=== PATIENT | female | born 1945 | race Caucasian/White ===

== ENCOUNTER 2018-03-07 06:50 | Day surgery (SDC) | payer MEDICARE, OTHER ==
[~2018-03-07] VITALS: Ht 175.3 cm; Wt 101.8 kg
[2018-03-07] MEDS ORDERED: PARO10TA2 PO (07:43)
[2018-03-07] MEDS ORDERED: SOTA120T PO (07:43)
[2018-03-07] MEDS ORDERED: SPIR25TA PO (07:43)
[2018-03-07] MEDS ORDERED: APIX5TAB PO (07:45)
[2018-03-07] MEDS ORDERED: FURO40TA PO (07:45)
[2018-03-07] MEDS ORDERED: D-20TAB3 PO (07:45)
[2018-03-07] MEDS ORDERED: PRAV40TA2 PO (07:45)
[2018-03-07] MEDS ORDERED: SODIUM CHLOR 0.9% 1000 ML INJ 1,000 ML IV SCH (08:00)
[2018-03-07 08:04] VITALS: BP 140/86; PULSE 82; RESP 18; TEMP 98; O2SAT 93
[2018-03-07 08:07] LABS: AUTOMATED NEUTROPHIL # 7.2 TH/MM3 (1.8-7.7); BASOPHIL # 0.1 TH/MM3 (0-0.2); BASOPHIL % 0.9 % (0.0-2.0); EOSINOPHIL # 0.1 TH/MM3 (0-0.4); EOSINOPHIL % 1.4 % (0.0-4.0); HEMATOCRIT 40.9 % (35.0-46.0); HEMOGLOBIN 13.8 GM/DL (11.6-15.3); LYMPH % 11.9 % (9.0-44.0); LYMPHOCYTE # 1.1 TH/MM3 (1.0-4.8); MEAN CELL VOLUME 88.8 FL (80.0-100.0); MEAN CORPUSCULAR HEMOGLOBIN 29.9 PG (27.0-34.0); MEAN CORPUSCULAR HGB CONC 33.7 % (32.0-36.0); MONOCYTE # 0.5 TH/MM3 (0-0.9); NEUT % 79.8 % (16.0-70.0); PLATELET COUNT 230 TH/MM3 (150-450); RED CELL DISTRIBUTION WIDTH 13.7 % (11.6-17.2)
[2018-03-07 08:16] LABS: INTERNATIONAL NORMALIZED RATIO 0.9 RATIO; PROTHROMBIN TIME - PATIENT 9.3 SEC (9.8-11.6)
[2018-03-07 08:25] LABS: BICARBONATE 28.2 MEQ/L (21.0-32.0); CALCIUM 9.4 MG/DL (8.5-10.1); CREATININE 1.11 MG/DL (0.50-1.00)
--- NOTE | 2018-03-07 09:27 | PD.RAD ---
Post Procedure Progress Note Procedure Date: Mar 07, 2018 Supervising Radiologist: Louis Parekh Proceduralist/Assist: Alyssa Lange, RT(R), Mike Frazier, RT(R) Anesthesia: Local Plan of Activity Patient to Unit: ROPU Patient Condition: Good See PACS Report for procedural detail/treatment Louis Parekh MD Mar 07, 2018 09:27
[2018-03-07 09:30] VITALS: BP 106/48; PULSE 80; RESP 18; TEMP 98.4; O2SAT 95
[2018-03-07 09:45] VITALS: BP 106/48; PULSE 80; RESP 18; TEMP 98.4; O2SAT 95
[2018-03-07 10:04] LABS: TOTAL PROTEIN,CSF 43.4 MG/DL (15.0-45.0)
--- NOTE | 2018-03-07 10:10 | RADRPT ---
EXAM DATE/TIME: 03/07/2018 09:21 [place] COMPARISON: No previous studies available for comparison. INDICATIONS : Patient presents with peripheral nerve disease in need of lumbar puncture. MEDICAL HISTORY : Anxiety Arthritis Fibromyalgia CA Depression SURGICAL HISTORY : Heart cath Cardioversion Hysterectomy ENCOUNTER: Initial ACUITY: >1 year PAIN SCORE: 0/10 LOCATION: N/A LUMBAR PUNCTURE TIME: 09:11 hours FLUORO TIME: 0.20 minutes IMAGE SERIES: 2 ACCESS LEVEL: L3-4 OPENING PRESSURE: 12 cm of water CLOSING PRESSURE: 8.5 cm of water FLUID: 11.5 cc of clear CSF was collected and sent to the laboratory for analysis. PROCEDURE : 1. Fluoroscopic guided lumbar puncture. 2. Recording of opening pressure. The risks, benefits and alternatives to the procedure were explained and verbal and written consent w as obtained. The site was prepped in sterile fashion. Full sterile technique was used, including ca p, mask, sterile gloves and gown and a large sterile sheet. Hand hygiene and 2% chlorhexidine and/or betadine/alcohol prep was utilized per protocol for cutaneous antisepsis. The skin and subcutaneous tissues were infiltrated with local anesthetic solution. With fluoroscopic guidance the lumbar thecal sac was punctured at the above level described above and the opening pressure was recorded. The above described fluid was removed without difficulty. The patient tolerated the procedure well and there were no complications. CONCLUSION: Uncomplicated fluoroscopically guided lumbar puncture with pressures as above. Louis Parekh MD on March 07, 2018 at 10:08 Board Certified Radiologist. This report was verified electronically.
[2018-03-07 10:38] LABS: SUPERNATE COLOR TUBE #1 CLEAR (CLEAR)
[2018-03-07 10:40] LABS: RBC TUBE #1 73 /MM3; WBC TUBE #1 37 /MM3 (0-10)
[2018-03-07 10:42] LABS: CSF LYMPHOCYTES 63 %; CSF MONOCYTES 30 %; CSF NEUTROPHILS 7 %
[2018-03-07 10:46] LABS: CSF LYMPHOCYTES 80 %; CSF MONOCYTES 20 %
[2018-03-07 10:47] LABS: CSF NEUTROPHILS 0 %; RBC TUBE #4 15 /MM3; WBC TUBE #4 2 /MM3 (0-10)
[2018-03-07 11:30] VITALS: BP 132/82; PULSE 68; RESP 18; O2SAT 93
[2018-03-08 09:55] LABS: HSV 1,PCR Negative (Negative)
[2018-03-08 10:09] LABS: CMV DNA QUANT BY RAPID PCR Negative (Negative)
[2018-03-09 23:52] LABS: CSF CRYPTOCOCCUS ANTIGEN NOT DETECTED (NEGATIVE)
[2018-03-10 09:33] LABS: CSF CRYPTOCOCCUS AG CONF ND (NOT DETECTD)
[2018-03-10 15:54] LABS: VZV PCR RESULT <500 (<500 copies)
== END 2018-03-07 11:45 | disposition home or self-care (01) ==
LOC: HROP 06:50 → HRIP 06:54 → HROP 11:45
PROVIDERS: ATTEND Psychiatry & Neurology Neurology
DX: G61.81 Chronic inflammatory demyelinating polyneuritis (principal); M79.7 Fibromyalgia; I25.2 Old myocardial infarction; F41.9 Anxiety disorder, unspecified; F32.9 Major depressive disorder, single episode, unspecified; G64 Other disorders of peripheral nervous system; I48.91 Unspecified atrial fibrillation; Z01.818 Encounter for other preprocedural examination
CPT/HCPCS: 62270; 77003; 80048; 82040; 82042; 82784; 82945; 83873; 83916; 84157; 85025; 85610; 85730; 86403; 86618; 87070; 87205; 87497; 87529; 87799; 88112; 89051; J7030